=== PATIENT | male | born 1970 | race Caucasian/White ===

== ENCOUNTER 2020-12-12 10:25 | Inpatient (IN) | payer BC ==
[~2020-12-12] VITALS: Ht 185.4 cm; Wt 104.3 kg
[~2020-12-12 10:25] MED LIST: BUSPIRONE HCL10 MG PO; FLONASE 0.05% N16 GM; IBUPROFEN800 MG PO; NEURONTIN600 MG PO; RELAFEN 750 MG750 MG PO; VALACYCLOVIR1000 MG PO
[2020-12-12 12:19] LABS: HEMOGLOBIN 17.6 gm/dl (14.0-17.5); RED BLOOD COUNT 5.33 M/UL (4.20-5.50); WHITE BLOOD COUNT 5.6 K/UL (4.5-11.0)
[2020-12-12 12:34] LABS: BUN/CREATININE RATIO 19 (0-10)
[2020-12-13 07:27] LABS: RED BLOOD COUNT 5.04 M/UL (4.20-5.50)
[2020-12-13 07:41] LABS: BUN/CREATININE RATIO 22 (0-10)
[2020-12-13 07:42] LABS: HEMOGLOBIN 15.6 gm/dl (14.0-17.5)
[2020-12-14 06:40] LABS: HEMOGLOBIN 16.5 gm/dl (14.0-17.5); RED BLOOD COUNT 5.08 M/UL (4.20-5.50)
[2020-12-14 07:18] LABS: BUN/CREATININE RATIO 22 (0-10)
[2020-12-17 04:15] LABS: HEMOGLOBIN 16.8 gm/dl (14.0-17.5); RED BLOOD COUNT 5.13 M/UL (4.20-5.50); WHITE BLOOD COUNT 9.5 K/UL (4.5-11.0)
[2020-12-17 04:47] LABS: BUN/CREATININE RATIO 23 (0-10)
[2020-12-18 04:57] LABS: HEMOGLOBIN 15.7 gm/dl (14.0-17.5); RED BLOOD COUNT 5.02 M/UL (4.20-5.50); WHITE BLOOD COUNT 11.6 K/UL (4.5-11.0)
[2020-12-18 05:17] LABS: BUN/CREATININE RATIO 21 (0-10)
[2020-12-20 05:12] LABS: RED BLOOD COUNT 5.2 M/UL (4.20-5.50)
[2020-12-20 05:32] LABS: BUN/CREATININE RATIO 26 (0-10)
[2020-12-21 03:46] LABS: HEMOGLOBIN 16.7 gm/dl (14.0-17.5); RED BLOOD COUNT 5.12 M/UL (4.20-5.50)
[2020-12-21 04:29] LABS: BUN/CREATININE RATIO 27 (0-10)
[2020-12-22 05:15] LABS: HEMOGLOBIN 16.5 gm/dl (14.0-17.5); RED BLOOD COUNT 5.03 M/UL (4.20-5.50); WHITE BLOOD COUNT 12.9 K/UL (4.5-11.0)
[2020-12-22 05:32] LABS: BUN/CREATININE RATIO 27 (0-10)
[2020-12-23 05:17] LABS: HEMOGLOBIN 16.5 gm/dl (14.0-17.5); RED BLOOD COUNT 5.07 M/UL (4.20-5.50); WHITE BLOOD COUNT 13.8 K/UL (4.5-11.0)
[2020-12-23 05:36] LABS: BUN/CREATININE RATIO 28 (0-10)
[2020-12-23] MEDS ORDERED: PROAIR HFA8.5 GM INH (08:46)
[2020-12-23] MEDS ORDERED: LEVOFLOXACIN500 MG PO (08:46)
[2020-12-23] MEDS ORDERED: DECADRON6 MG PO (08:46)
== END 2020-12-23 14:20 | disposition home or self-care (01) | DRG 177 ==
LOC: ER1 10:25 → CDU 13:47 → MED SURG 4 13:47
PROVIDERS: Emergency Medicine; Internal Medicine; Internal Medicine Infectious Disease; ADMIT Internal Medicine
PROC: XW033E5 Introduction of Remdesivir Anti-infective into Peripheral Vein, Percutaneous Approach, New Technology Group 5 (ICD-10-PCS; principal; 2020-12-12)
PROC: 3E0333Z Introduction of Anti-inflammatory into Peripheral Vein, Percutaneous Approach (ICD-10-PCS; 2020-12-12)
PROC: 5A0955A Assistance with Respiratory Ventilation, Greater than 96 Consecutive Hours, High Flow/Velocity Cannula (ICD-10-PCS; 2020-12-17)
DX: U07.1 COVID-19 (principal); J12.82 Pneumonia due to coronavirus disease 2019; J96.01 Acute respiratory failure with hypoxia; J15.9 Unspecified bacterial pneumonia; Z90.49 Acquired absence of other specified parts of digestive tract
CPT/HCPCS: 0240U; 36415; 36600; 71045; 71046; 80048; 80053; 82728; 82803; 83036; 83615; 83880; 84439; 84443; 85025; 85379; 86140; 94640; 94664; 94760; 96374; 99284; C9113; J1100; J1650; J1956; J2405; J2930; J7030

== ENCOUNTER → 2021-01-24 | Outpatient (CLI) | payer BC ==
[~2021-01-24] MED LIST changes: +DECADRON6 MG PO; +LEVOFLOXACIN500 MG PO; +PROAIR HFA8.5 GM INH
== END ==
LOC: EXRD 09:15
DX: U07.1 COVID-19 (principal); B94.8 Sequelae of other specified infectious and parasitic diseases
CPT/HCPCS: 71046

== ENCOUNTER → 2021-02-09 | Outpatient (CLI) | payer BC | LOC: HEART 5 09:21 | DX: U07.1 COVID-19 (principal); R94.2 Abnormal results of pulmonary function studies; Z87.891 Personal history of nicotine dependence | CPT/HCPCS: 94060; 94729 ==

== ENCOUNTER → 2021-02-25 | Outpatient (CLI) | payer BC | LOC: EXRD 09:43 | DX: R06.02 Shortness of breath (principal); M54.6 Pain in thoracic spine; U09.9 Post COVID-19 condition, unspecified; R91.8 Other nonspecific abnormal finding of lung field | CPT/HCPCS: 71045; 71101 ==

== ENCOUNTER → 2021-11-22 | Outpatient (CLI) | payer BC | LOC: EXRD 11:16 | DX: M47.26 Other spondylosis with radiculopathy, lumbar region (principal) | CPT/HCPCS: 72100 ==